=== PATIENT | male | born 2000 | race Caucasian/White ===

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

== ENCOUNTER 2021-08-02 11:58 | Emergency (ER) | payer OTHER ==
[~2021-08-02] VITALS: Ht 170.2 cm; Wt 68.0 kg
[2021-08-02 12:04] VITALS: BP 111/64
[2021-08-02] MEDS ORDERED: DICYCLOMINE HCL LIQUID 20 MG, ALUMINUM HYD/MAG/SIMETHICONE 30 ML, LIDOCAINE VISCOUS 2% ... PO ONE ×3 (12:30)
[2021-08-02] MEDS ORDERED: ACETAMINOPHEN EXTRA STRENGTH 500 MG TAB PO ONE (12:30)
--- NOTE | 2021-08-02 12:35 | NUR ---
20 Y/O MALE COMPLAINS OF ABDOMINAL PAIN, NAUSEA, DIARRHEA X 3 DAYS. PT STATES HX OF HERNIA UNDER UMBILICUS, DIAGNOSED "YEARS AGO" AND HAD A PAINFUL EPISODE ABOUT 3 MONTHS AGO. PT STATES HE HAS 1 PAINFUL EPISODE INVOLVING HIS HERNIA ABOUT ONCE A MONTH. 10 PAIN STARTED THIS MORNING WITH NAUSEA PAST 3 DAYS. PAIN IS SHARP AND ACHEY, INCREASES WITH PRESSURE AND STRETCHING. DID NOT TAKE ANY PAIN MEDS. BOWEL SOUNDS CLEAR THROUGHOUT. ABDOMEN SYMMETRICAL AND FLAT. TENDERNESS PRESENT, NO PALPABLE MASSES. LUNG SOUNDS CLEAR THROUGHOUT. HEART SOUNDS CLEAR THROUGHOUT. WEAKNESS BLE R/T ABSOMINAL PAIN.
[2021-08-02 12:41] LABS: BASOPHILS % (AUTO) 0.5 % (0.0-2.0); EOSINOPHILS # (AUTO) 0.2 K/uL (0-0.4); EOSINOPHILS % (AUTO) 4.9 % (0.0-4.0); HEMATOCRIT 40.9 % (36-52); LYMPHOCYTES % (AUTO) 44.4 % (20.5-51.1); MEAN CORPUSCULAR HEMOGLOBIN 32 pg (27-31); MEAN CORPUSCULAR HGB CONC 34 g/dL (33-37); MEAN CORPUSCULAR VOLUME 93.3 fL (80-94); MONOCYTES # (AUTO) 0.3 K/uL (0.8-1.0); MONOCYTES % (AUTO) 5.7 % (1.7-9.3); NEUTROPHILS % (AUTO) 44.5 % (42.2-75.2); PLATELET COUNT (AUTO) 244 K/uL (140-450); RED BLOOD CELL COUNT(AUTO) 4.39 MIL/uL (4.20-6.10); RED CELL DISTRIBUTION WIDTH 12.5 % (11.6-13.7); WHITE BLOOD COUNT (AUTO) 4.5 K/uL (4.5-11.0)
--- NOTE | 2021-08-02 12:43 | NUR ---
PT TAKEN TO XRAY VIA W/C
[2021-08-02] MEDS ORDERED: ALUMINUM HYD/MAG/SIMETHICONE 30 ML UDC ONE (13:19)
[2021-08-02] MEDS ORDERED: DICYCLOMINE HCL LIQUID 10 MG/5 ML UDC ONE (13:19)
[2021-08-02 13:45] LABS: ANION GAP 8.9 (8-16); CARBON DIOXIDE 29.1 mmol/L (21-32); CREATININE 0.8 mg/dL (0.6-1.3); TOTAL BILIRUBIN 0.6 mg/dL (0.0-1.0)
[2021-08-02] MEDS ORDERED: MIRABULK PO (14:01)
[2021-08-02] MEDS ORDERED: MAG355OR2 PO (14:01)
[2021-08-02] MEDS ORDERED: FAMO-90 PO (14:01)
[2021-08-02 14:15] VITALS: BP 111/64
--- NOTE | 2021-08-02 14:15 | NUR ---
Patient discharged with v/s stable. Written and verbal after care instructions given and explained. Patient alert, oriented and verbalized understanding of instructions. Ambulatory with steady gait. All questions addressed prior to discharge. ID band removed. Patient advised to follow up with PMD. Rx of PEPCID, MAALOX AND MIRALAX given. Patient educated on indication of medication including possible reaction and side effects. Opportunity to ask questions provided and answered.
== END 2021-08-02 14:15 | disposition home or self-care (01) ==
LOC: MED 11:58
DX: K29.70 Gastritis, unspecified, without bleeding (principal); F12.10 Cannabis abuse, uncomplicated
CPT/HCPCS: 36415; 74021; 80053; 83690; 85025; 99284

== ENCOUNTER 2023-09-13 04:35 | Emergency (ER) | payer OTHER ==
[~2023-09-13] VITALS: Ht 167.6 cm; Wt 64.4 kg
[~2023-09-13 04:35] MED LIST changes: +FAMO-90 PO; +MAG355OR2 PO; +MIRABULK PO
[2023-09-13 04:46] VITALS: BP 110/70; PULSE 92; RESP 16; TEMP 98.2; O2SAT 100
[2023-09-13] MEDS ORDERED: PHEN26CR2 RC (06:41)
[2023-09-13] MEDS ORDERED: ACET-10509 PO (06:41)
[2023-09-13] MEDS ORDERED: MIRABULK PO (06:41)
== END 2023-09-13 06:44 | disposition home or self-care (01) ==
LOC: MED 04:35
DX: K64.4 Residual hemorrhoidal skin tags (principal); K59.00 Constipation, unspecified; Z79.899 Other long term (current) drug therapy
CPT/HCPCS: 99282